=== PATIENT | male | born 1965 | race Caucasian/White ===

== ENCOUNTER 2022-06-26 20:58 | Emergency (ER) | payer OTHER, SELFPAY ==
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
[2022-06-26 21:12] VITALS: BP 94/75; PULSE 101; RESP 16; TEMP 36.5; O2SAT 96
[2022-06-26 21:17] VITALS: BP 190/100; PULSE 114; O2SAT 99
[2022-06-26 21:24] VITALS: BMI 28.8
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
== END 2022-06-26 22:19 | disposition home or self-care (01) ==
PROVIDERS: Emergency Provider Internal Medicine
DX: S00.01XA Abrasion of scalp, initial encounter (principal); V43.52XA Car driver injured in collision with other type car in traffic accident, initial encounter; Y93.9 Activity, unspecified; Y92.410 Unspecified street and highway as the place of occurrence of the external cause; Y99.9 Unspecified external cause status
CPT/HCPCS: 99282; 99283